=== PATIENT | female | born 1960 | race Caucasian/White ===

== ENCOUNTER 2018-06-20 06:12 | Day surgery (SDC) | payer OTHER ==
[2018-06-20] MEDS ORDERED: MIDAZOLAM 1 MG/ML 2 ML INJ ×3 (08:46)
[2018-06-20] MEDS ORDERED: FENTAnyl 50 MCG/ML VIAL (08:46)
== END 2018-06-20 10:25 | disposition home or self-care (01) ==
LOC: GIL 06:12
DX: Z12.11 Encounter for screening for malignant neoplasm of colon (principal); K29.50 Unspecified chronic gastritis without bleeding; K64.8 Other hemorrhoids; E11.9 Type 2 diabetes mellitus without complications; I10 Essential (primary) hypertension
CPT/HCPCS: 43239; 88305; 88312